=== PATIENT | male | born 1940 | race Caucasian/White ===

== ENCOUNTER 2017-01-26 18:10 | Emergency (ER) | payer OTHER ==
[~2017-01-26 18:10] MED LIST: BENAZEPRIL HYDR20 M1 PO; FLA500 PO; GLIPIZIDE2.5 M1 PO; LAC PO; LEVAQUIN750 MG PO; METFORMIN HCL750 MG PO; METFORMIN HCL850 MG PO; XARELTO15 M1 PO; ZESTRIL5 MG PO
[2017-01-26 19:09] LABS: BASOPHIL % 0.3 % (0-2); PLATELET COUNT 196 x10^3mcL (130-400); RED CELL DISTRIBUTION WIDTH 13.2 % (11.5-14.5)
[2017-01-26 19:15] LABS: CALCIUM 8.8 mg/dL (8.5-10.1); CARBON DIOXIDE 21.3 mmol/L (21-32); CHLORIDE SERUM 106 mmol/L (98-107); GLUCOSE SERUM 205 mg/dL (74-106); POTASSIUM SERUM 4.2 mmol/L (3.5-5.1); SODIUM SERUM 140 mmol/L (136-145)
[2017-01-26 19:19] LABS: ALBUMIN 3.4 g/dL (3.4-5.0); ALKALINE PHOSPHATASE 95 U/L (46-116); ALT/SGPT 31 U/L (16-63); AST/SGOT 18 U/L (15-37); BILIRUBIN TOTAL 0.5 mg/dL (0.20-1.00); TOTAL PROTEIN, SERUM 6.5 g/dL (6.4-8.2)
[2017-01-26 20:02] LABS: microscopic required? NO
[2017-01-26 20:21] LABS: UA SPECIFIC GRAVITY >=1.030 (1.005-1.035); urine erythrocyte NEGATIVE (NEGATIVE)
[2017-01-26 23:05] VITALS: BP 141/69
== END 2017-01-26 23:05 | disposition home or self-care (01) ==
LOC: ED 18:10
PROVIDERS: Emergency Medicine
DX: R11.2 Nausea with vomiting, unspecified (principal); E11.43 Type 2 diabetes mellitus with diabetic autonomic (poly)neuropathy; K31.84 Gastroparesis
CPT/HCPCS: 83880; J1885; J2765; J7040

== ENCOUNTER 2017-09-15 09:41 | Emergency (ER) | payer OTHER ==
[~2017-09-15] VITALS: Ht 170.2 cm; Wt 90.7 kg
[2017-09-15 11:33] VITALS: BP 176/98
== END 2017-09-15 11:33 | disposition home or self-care (01) ==
LOC: ED 09:41
DX: S91.311A Laceration without foreign body, right foot, initial encounter (principal); E11.9 Type 2 diabetes mellitus without complications; I25.10 Atherosclerotic heart disease of native coronary artery without angina pectoris; I73.9 Peripheral vascular disease, unspecified; W26.0XXA Contact with knife, initial encounter; Y93.89 Activity, other specified; Y92.000 Kitchen of unspecified non-institutional (private) residence as the place of occurrence of the external cause; Y99.8 Other external cause status

== ENCOUNTER 2018-11-03 15:01 | Inpatient (IN) | payer OTHER ==
[~2018-11-03] VITALS: Ht 170.2 cm; Wt 87.3 kg
[2018-11-03 15:05] VITALS: Ht 170.2 cm; Wt 87.3 kg
--- NOTE | 2018-11-03 15:15 | NUR ---
PATIENT BIBA FROM HOME, PER MEDICS PATIENT STS "HE FELT LIKE CRAP AFTER WORK". PER PATIENT, STS HAVING DIZZINESS, NAUSEA, AND VOMITTING. ACKNOWLEDGED THAT HE FEELS LIKE "EVERYTHING IS SPINNING AROUND ME". IS SEEN VOMITTING AT BEDSIDE. DENIES PAIN ELSEWHERE. BREATHING E/U, BILATERAL CHEST RISE. LUNG SOUNDS CLEAR. DR. ZHANG AT BEDSIDE PERFORMING MSE
--- NOTE | 2018-11-03 15:30 | NUR ---
LAB AT BEDSIDE
--- NOTE | 2018-11-03 15:36 | NUR ---
PT SENT TO CT
[2018-11-03 15:45] LABS: BASOPHIL % 0.6 % (0-2); PLATELET COUNT 225 x10^3mcL (130-400); RED CELL DISTRIBUTION WIDTH 11.7 % (11.5-14.5)
--- NOTE | 2018-11-03 15:49 | NUR ---
XRAY AT BEDSIDE
[2018-11-03 15:50] LABS: CALCIUM 9.1 mg/dL (8.5-10.1); CARBON DIOXIDE 22.8 mmol/L (21-32); CHLORIDE SERUM 102 mmol/L (98-107); GLUCOSE SERUM 241 mg/dL (74-106); POTASSIUM SERUM 4.1 mmol/L (3.5-5.1); SODIUM SERUM 138 mmol/L (136-145)
[2018-11-03 15:56] LABS: ALKALINE PHOSPHATASE 123 U/L (46-116); ALT/SGPT 28 U/L (16-63); AST/SGOT 16 U/L (15-37); BILIRUBIN TOTAL 0.8 mg/dL (0.20-1.00); TOTAL PROTEIN, SERUM 7.1 g/dL (6.4-8.2)
[2018-11-03 15:59] LABS: ALBUMIN 3.3 g/dL (3.4-5.0)
--- NOTE | 2018-11-03 17:40 | NUR ---
PATIENT RESTING AT BEDSIDE IN NAD. BREATHING E/U, BILATERAL CHEST RISE, BED AT LOWEST LEVEL. CALL LIGHT IN REACH. LIGHTS DIMMED TO PROMOTE COMFORT.
[2018-11-03] MEDS ORDERED: LANTUS SOLOS100 U/M1 (17:50)
[2018-11-03] MEDS ORDERED: NEU300 PO (17:50)
--- NOTE | 2018-11-03 18:09 | NUR ---
REPORT OFF TO PRAKASH COTTO
[2018-11-03 18:29] VITALS: BP 141/56
--- NOTE | 2018-11-03 18:32 | NUR ---
RECEIVED PT FROM ED VIA ABDOULAYE. ORIENTED PT TO ROOM AND SURROUNDINSG. IV NOTED TO LAC PATENT AND INTACT. TELE 6 PLACED ON PT READING SBR. INSTRUCTED PT ON THE USE OF CALL LIGHT FOR ASSISTANCE. ENDORSED PT TO PRIMARY ISELA COTTO
--- NOTE | 2018-11-03 19:15 | NUR ---
RECEIVED PT LAYING IN BED, NO ACUTE DISTRESS NOTED. DENIES PAIN OR DISCOMFORT. AA/OX4, ABLE TO MAKE NEEDS KNOWN. NSR TO TELE #6, HR 65, DENIES CP. PULSES PRESENT AND EQUAL THROUGHOUT, +1 EDEMA TO BLE. BREATHING ON RA, EVEN AND UNLABORED, DENIES SOB OR DYSPNEA. ABBD ROUND AND SOFT WITH ACTIVE BOWEL SOUNDS, DENIES N/V/D. FREELY VOIDS URINE. MILD GENERALIZED WEAKNESS, ABLE TO TURN AND REPOSITION SELF IN BED, P.T. EVAL PENDING. DARK DISCOLORATION NOTED TO BLE, IV TO LAC IN PLACE, DRY, PATENT, INTACT AND INFUSING IVF WELL. NO PAIN, REDNESS OR SWELLING NOTED. COMFORT AND SAFETY MEASURES IN PLACE. ALL NEEDS ASSESSED AND ATTENDED TO. CALL LIGHT WITHIN REACH. WILL CONTINUE TO MONITOR
[2018-11-03 20:38] VITALS: BP 139/60
--- NOTE | 2018-11-03 20:45 | NUR ---
PT AMBULATED TO BATHROOM AND BACK TO BED WITHOUT INCIDENT. GAIT STRONG AND STEADY. NO DISTRESS NOTED. CALL LIGHT WITHIN REACH. WILL CONTINUE TO MONITOR
--- NOTE | 2018-11-04 01:40 | NUR ---
PT LAYING IN BED WITH EYES CLOSED, NO ACUTE DISTRESS NOTED, BREATHING EVEN AND UNLABORED. CALL LIGHT WITHIN REACH. WILL CONTINUE TO MONITOR
--- NOTE | 2018-11-04 04:52 | NUR ---
NO SIGNIFICANT CHANGES TO REPORT, PT COMPLID WITH NURSING CARE THROUGHOUT THE SHIFT WITH NO ACUTE EVENTS OVERNIGHT. COMFORT AND SAFETY MEASURES MAINTAINED. ALL NEEDS ASSESSED AND ATTENDED TO. CALL LIGHT WITHIN REACH. WILL ENDORSE CARE TO DAY SHIFT NURSE
[2018-11-04 06:05] VITALS: BP 132/55
--- NOTE | 2018-11-04 06:11 | NUR ---
PT LAYING IN BED AT THIS TIME, NO ACUTE DISTRESS NOTED, BREATHING EVEN AND UNLABORED. CALL LIGHT WITHIN REACH. WILL CONTINUE TO MONITOR AND ENDORSE CARE TO DAY SHIFT NURSE
--- NOTE | 2018-11-04 06:35 | NUR ---
PT C/O BACK PAIN AT THIS TIME AND REQUESTING PAIN MED. MEDICATED WITH PRN NORCO PER EMAR
[2018-11-04 06:36] LABS: CALCIUM 8.4 mg/dL (8.5-10.1); CARBON DIOXIDE 26.5 mmol/L (21-32); CHLORIDE SERUM 106 mmol/L (98-107); CREATININE SERUM 0.9 mg/dL (0.7-1.3); GLUCOSE SERUM 110 mg/dL (74-106); LIPASE 129 IU/L (73-393); MAGNESIUM 1.8 mg/dL (1.8-2.4); POTASSIUM SERUM 4.3 mmol/L (3.5-5.1); SODIUM SERUM 141 mmol/L (136-145)
[2018-11-04 07:17] VITALS: BP 122/60
--- NOTE | 2018-11-04 07:20 | NUR ---
RECEIVED PT IN BED, A/A/O X 4, CALM, COOPERATIVE, DENIES DIZZINESS OR H/A. ON TELE # 6, NSR, DENIES CHEST PAIN OR DISCOMFORT AT THIS TIME. GEOVANNI RADIAL AND PEDAL PULSES PRESENT, +2 NON-PITTING EDEMA TO BLE WITH DARK DISCOLORATIONS, CAP REFILL < 3 SECS, SCD BY BEDSIDE. NO RESPIRATORY DISTRESS NOTED. MILD GENERALIZED WEAKNESS, ABLE TO AMBULATE WITH SLOW, STEADY GAIT. IV SITE LAC CDI, RUNNING NS 80 ML/HR. SIDE RAILS UP X 2, BED IN LOW POSITION, CALL LIGHT WITHIN REACH. WILL CONTINUE TO MONITOR.
--- NOTE | 2018-11-04 10:20 | NUR ---
PT IN BED, RESTING COMFORTABLY BUT EASILY AROUSED. NO RESPIRATORY DISTRESS, PAIN, OR DISCOMFORT NOTED. WILL CONTINUE TO MONITOR.
[2018-11-04 12:37] VITALS: BP 102/55
--- NOTE | 2018-11-04 13:20 | NUR ---
PT SITTING ON CHAIR AFTER TAKING HIS LUNCH. PT STATED THAT IT HURTS HIS BACK TO BE LAYING DOWN FOR A LONG TIME. DENIES DIZZINESS, PAIN OR DISCOMFORT AT THIS TIME. WILL CONTINUE TO MONITOR.
--- NOTE | 2018-11-04 17:10 | NUR ---
PT SITTING IN BED, TALKING TO JIS SON, JANES, THROUGH HIS CELLPHONE. PT DENIES DIZZINESS OR H/A. NO RESPIRATORY DISTRESS NOTED. PT CALM, COOPERATIVE. SIDE RAILS UP X 2, BED IN LOW POSITION, CALL LIGHT WITHIN REACH. WILL ENDORSE TO NOC SHIFT.
--- NOTE | 2018-11-04 19:34 | NUR ---
RECEIVED PT FROM PREVIOUS SHIFT NURSE. PT AOX4. DENIES MCCARTHY/DIZZINESS AT THIS TIME. TELE #6, NSR. DENIES CP/PRESSURE. PULSES PALPABLE, +1 BLE EDEMA NOTED. LUNG SOUNDS CLEAR, ON RA. DENIES SOB/DIFFICULTY BREATHING. BOWEL SOUNDS ACTIVE. VOIDS FREELY. MILD GEN. WEAKNESS NOTED. AMBULATORY. DARK DISCOLORATION TO BLE. IV NOTED TO LAC, INTACT AND PATENT. BED IN LOWEST POSITION. CALL LIGHT WITHIN REACH. WILL CONTINUE TO MONITOR.
[2018-11-04 20:41] VITALS: BP 110/63
--- NOTE | 2018-11-05 02:45 | NUR ---
PT RESTING IN BED. RR EVEN AND UNLABORED. NO ACUTE DISTRESS NOTED. CALL LIGHT WITHIN REACH. BED IN LOWEST POSITION. WILL CONTINUE TO MONITOR.
[2018-11-05 05:19] VITALS: BP 138/60
--- NOTE | 2018-11-05 06:39 | NUR ---
PT C/O WORSENING DIZZINESS THAT STARTED ABOUT [address] MALDONADO NOTIFIED. PER DR. MALDONADO ORDER MECLIZINE 12.5 MG TID PRN. TELEPHONE ORDER READ BACK.
[2018-11-05 06:48] LABS: CALCIUM 8.6 mg/dL (8.5-10.1); CARBON DIOXIDE 25.9 mmol/L (21-32); CHLORIDE SERUM 104 mmol/L (98-107); GLUCOSE SERUM 147 mg/dL (74-106); MAGNESIUM 1.6 mg/dL (1.8-2.4); POTASSIUM SERUM 5.1 mmol/L (3.5-5.1); SODIUM SERUM 138 mmol/L (136-145)
--- NOTE | 2018-11-05 07:45 | NUR ---
RECEIVED PATIENT SLEEPING BED, AROUSABLE. A/OX4. DENIES CHEST PAIN. NO SOB NOTED, PULSE OX 98%, ON ROOM AIR. PATIENT C/O DIZZINESS, WILL GIVE MECLIZINE, UPON PHARMACY APPROVAL. PT STATES NEEDING TO VOID, URINAL PROVIDED, FOR SAFETY PRECAUTION. NS IV INFUSING TO LAC AT 80 ML/HR. IV SITE FLUSHES WELL, NO REDNESS, SWELLING, OR PAIN AT SITE. CALL LIGHT WITHIN REACH. BED IN LOW POSITION.
--- NOTE | 2018-11-05 09:30 | NUR ---
PT AT BEDSIDE.
--- NOTE | 2018-11-05 09:35 | NUR ---
PT BP WAS 176/65. PT RECEIVED LOTENSIN PO ORDERED AT 0835 AND RECHECKED BP NOW 143/66. PT IS STABLE.
--- NOTE | 2018-11-05 09:37 | NUR ---
PT SAID HIS DIZZINESS IS BETTER AFTER MECLIZINE PO. WILL MONITOR.
--- NOTE | 2018-11-05 09:50 | NUR ---
CAME AND SPOKE WITH PT. HE IS AWARE ABOUT PT DIZZINESS. INFORMED HIM ABOUT MG=1.6. HE SAID HE WILL ORDER MEDICINE.
[2018-11-05 10:16] VITALS: BP 143/66
[2018-11-05 14:15] VITALS: BP 117/54
--- NOTE | 2018-11-05 14:15 | NUR ---
MRI STAFF TOOK PT TO RADIOLOGY FOR MRI BRAIN. MRI CHECKLIST ARE DONE AND PT SIGNED CONSENT. VITAL SIGNS STABLE. PT IS STABLE.
--- NOTE | 2018-11-05 16:15 | NUR ---
RECEIVED PT FROM MRI AFTER MRI OF BRAIN. PT IS STABLE. VITAL SIGNS STABLE. DENIES PAIN. WILL MONITOR.
--- NOTE | 2018-11-05 17:01 | NUR ---
PT C/O DIZZINESS. MEDICATED PT WITH MECLIZINE PO ORDRED. WILL MONITOR.
--- NOTE | 2018-11-05 18:00 | NUR ---
PT SITTING UP IN THE CHAIR. STATED HIS DIZZINESS IS BETTER, TOLERABLE.
[2018-11-05 18:27] VITALS: BP 112/62
--- NOTE | 2018-11-05 18:50 | NUR ---
PATIENT IS SITTING UP ON CHAIR AT BEDSIDE. DENIES CHEST PAIN. A/OX4. NO SOB NOTED, PULSE OX 98%, ON ROOM AIR. PT C/O MILD DIZZINESS, PT STATES THE MECLIZINE HELPED W/ THE DIZZINESS AND IS TOLERABLE AT THIS TIME. CALL LIGHT WITHIN REACH.
--- NOTE | 2018-11-05 19:15 | NUR ---
PT RESTING IN BED COMFORTABLY, NO DIZZINESS THIS TIME. STABLE. GAVE REPORT TO ROLL TABLE OPERATOR NURSE.
--- NOTE | 2018-11-05 19:41 | NUR ---
RECEIVED PATIENT IN BED AWAKE, ALERT AND ORIENTED WITH NO C/O DIZZINESS AT THIS TIME, PATIENT MEDICATED EARLIER BY AM SHIFT. TELE#6 NSR WITH IST DEGREE AV BLOCK ON MONITOR., DENIES CHESTPAIN. RESPIRATION EVEN AND NONLABOR SATTING AT 98% RA. IV TO LAC INTACT AND INFUSINGW ELL. WILL CONTINUE TO MONITOR. CALL LIGHT WITHIN REACH.
[2018-11-05 20:57] VITALS: BP 154/68
--- NOTE | 2018-11-05 23:49 | NUR ---
SLEEPING THIS TIME SNORING WITH EYES CLOSED, BREATHING EASY AND NONLABOR. WILL CONTINUE TO MONITOR.
[2018-11-06 05:17] VITALS: BP 127/76
--- NOTE | 2018-11-06 05:19 | NUR ---
SLEPT AT LONG INTERVALS, NO SIGN OF DISTRESS NOTED THE ENTIRE SHIFT. ALL NEEDS ATTENDED.
[2018-11-06 07:07] LABS: CALCIUM 9.3 mg/dL (8.5-10.1); CARBON DIOXIDE 25.3 mmol/L (21-32); CHLORIDE SERUM 104 mmol/L (98-107); GLUCOSE SERUM 174 mg/dL (74-106); POTASSIUM SERUM 4.4 mmol/L (3.5-5.1); SODIUM SERUM 140 mmol/L (136-145)
--- NOTE | 2018-11-06 07:50 | NUR ---
RECEIVED PT IN BED. ASSESSED AND DOCUMENTED. DENIES PAIN THIS TIME. NO DIZZINESS THIS TIME. SAFTEY PRECAUTIONS ARE IN PLACE. WILL MONITOR.
--- NOTE | 2018-11-06 09:05 | NUR ---
CAME AND SPOKE WITH PT. HE SAID HE WILL DISCHARGE PT HOME TODAY. PT SAID HIS RIDE WILL BE HERE AFTER 7PM, SAID THAT IS OK. INFORMED ABOUT PT'S RHYTHM FIRST DEGREE AV BLOCK WITH PVC'S. HE LOOKED AT THE RHYTHM STRIP AND HE SAID PT IS FINE. PT DENIES CHEST PAIN AND STABLE. VITAL SIGNS STABLE.
[2018-11-06] MEDS ORDERED: MECLIZINE HYDRO25 M1 PO (09:18)
[2018-11-06 10:22] VITALS: BP 147/63
--- NOTE | 2018-11-06 13:21 | NUR ---
PHYSICAL THERAPY DAILY NOTES CO-SIGN All documentation done by the Machine Clerical Verifier for 11/06/18 has been reviewed. I agree with the documentation. Reviewed/Co-Signed by: Eduarda Rivas Documentation Done by:D[facility]TON [facility] PTA
[2018-11-06 13:28] VITALS: BP 147/63
--- NOTE | 2018-11-06 14:00 | NUR ---
PT IS STABLE. WAITING FOR RIDE TO GO HOME. NO DIZZINESS THIS TIME.
--- NOTE | 2018-11-06 16:15 | NUR ---
DISCHARGE INSTRUCTIONS AND PRESCRIPTION GIVEN. PB SIGNED AND SENT WITH PT. IV REMOVED AND DRESSING APPLIED. TELE REMOVED AND RETURNED. PT DENIES PAIN. NO DIZZINESS NOTED. OFFERED WHEELCHAIR BUT PT SAID HE WANT TO WALK. RN WALK WITH PT TO DC OFFICE ACCOMPANIED WITH PT'S FRIEND. PT DC HOME.
== END 2018-11-06 16:30 | disposition home or self-care (01) | DRG 149 ==
LOC: ED 15:01 → DU 17:44
PROVIDERS: Emergency Medicine; ADMIT Internal Medicine Pulmonary Disease
DX: H81.10 Benign paroxysmal vertigo, unspecified ear (principal); E11.9 Type 2 diabetes mellitus without complications; E83.42 Hypomagnesemia; I10 Essential (primary) hypertension; E78.5 Hyperlipidemia, unspecified; I25.10 Atherosclerotic heart disease of native coronary artery without angina pectoris; I25.2 Old myocardial infarction
CPT/HCPCS: 82962; 97110-GP; 97116-GP; 97530-GP; J0780; J1815; J2060; J2405; J3010; J3475; J3490; J7030; J8597; Q0092